=== PATIENT | male | born 1970 | race Caucasian/White ===

== ENCOUNTER 2017-06-05 19:34 | Emergency (ER) | payer OTHER ==
[2017-06-05 19:40] VITALS: BP 143/100
--- NOTE | 2017-06-05 20:03 | ED Physician Documentation ---
PD HPI MALE - Stated complaint Stated Complaint: MALE - Chief complaint Chief Complaint: UTI - History obtained from History obtained from: Patient - History of Present Illness Timing - onset: Other (His girlfriend mentioned that she might have an STD but there is no clear diagnosis. He has no symptoms but would like to be tested.) Review of Systems Constitutional: reports: Reviewed and negative Cardiac: reports: Reviewed and negative Respiratory: reports: Reviewed and negative PD PAST MEDICAL HISTORY - Past Medical History Past Medical History: No - Past Surgical History Past Surgical History: No - Present Medications Home Medications: Ambulatory Orders Medication Instructions Recorded Confirmed No Known Home Medications [No 06/05/17 06/05/17 Known Home Medications] - Allergies Allergies/Adverse Reactions: Allergies Allergy/AdvReac Type Severity Reaction Status Date / Time No Known Drug Allergies Allergy Verified 06/05/17 19:39 - Social History Does the pt smoke?: No Smoking Status: Never smoker Does the pt drink ETOH?: Yes Does the pt have substance abuse?: No - Immunizations Immunizations are current?: Yes - POLST Patient has POLST: No PD ED PE NORMAL - Vitals Vital signs reviewed: Yes - General General: Alert and oriented X 3, No acute distress - Abdomen Abdomen: Soft, Non tender - Neuro Neuro: Alert and oriented X 3, Normal speech - Psych Psych: Normal mood, Normal affect Results - Vitals Vitals: Vital Signs - 24 hr 06/05/17 19:37 Temperature 37 C Heart Rate 87 Respiratory 18 Rate Blood Pressure 143/100 H O2 Saturation 100 Oxygen O2 Source Room air Departure - Departure Disposition: 01 Home, Self Care Clinical Impression: Concern about STD in male without diagnosis Condition: Good Record reviewed to determine appropriate education?: Yes Instructions: STDs Older Adult Comments: Your blood pressure was elevated today on check into the emergency department. This does not mean that you have hypertension, it is a common phenomenon to come to the emergency department and have elevated blood pressure. I recommend that you see your primary care physician within the week to have it rechecked when you are feeling better.
== END 2017-06-05 20:11 | disposition home or self-care (01) ==
LOC: ED 19:34
DX: Z20.2 Contact with and (suspected) exposure to infections with a predominantly sexual mode of transmission (principal); R03.0 Elevated blood-pressure reading, without diagnosis of hypertension
CPT/HCPCS: 87491; 87591; 99282

== ENCOUNTER 2017-12-10 17:39 | Outpatient (CLI) | payer OTHER | END 2017-12-10 17:40 | disposition critical access hospital (66) | LOC: EMS 17:39 | PROVIDERS: ATTEND Surgery | DX: R07.9 Chest pain, unspecified (principal) | CPT/HCPCS: A0425; A0427 ==

== ENCOUNTER 2017-12-10 18:11 | Emergency (ER) | payer OTHER ==
[2017-12-10] MEDS ORDERED: LIDOCAINE VISCOUS 2% 15 ML UDC MM STA (18:22)
[2017-12-10] MEDS ORDERED: MAG HYDROX/AL HYDROX/SIMETH 30 ML UDC PO STA (18:22)
--- NOTE | 2017-12-10 18:25 | ED Physician Documentation ---
PD HPI CHEST PAIN - Stated complaint Stated Complaint: CP - Chief complaint Chief Complaint: Cardiac - History obtained from History obtained from: Patient - History of Present Illness Timing - onset: Other (46-year-old gentleman with no significant past medical history describes 10 days of mild constant chest pressure worse with taking a deep breath but no shortness of breath or cough. No recent travel, pedal edema , or calf pain. He was seen in the [place] and referred here for further evaluation and treatment. He did receive 324 mg of aspirin there.) Review of Systems Ten Systems: 10 systems reviewed and negative Constitutional: denies: Fever, Chills Cardiac: reports: Chest pain / pressure. denies: Palpitations, Pedal edema, Calf pain Respiratory: denies: Dyspnea, Cough, Hemoptysis, Wheezing PD PAST MEDICAL HISTORY - Past Medical History Past Medical History: No - Past Surgical History Past Surgical History: No - Present Medications Home Medications: Ambulatory Orders Medication Instructions Recorded Confirmed No Known Home Medications [No 06/05/17 06/05/17 Known Home Medications] - Allergies Allergies/Adverse Reactions: Allergies Allergy/AdvReac Type Severity Reaction Status Date / Time No Known Drug Allergies Allergy Verified 06/05/17 19:39 - Social History Does the pt smoke?: No Smoking Status: Never smoker Does the pt drink ETOH?: Yes Does the pt have substance abuse?: No - Immunizations Immunizations are current?: Yes - POLST Patient has POLST: No PD ED PE NORMAL - Vitals Vital signs reviewed: Yes - General General: Alert and oriented X 3, No acute distress - HEENT HEENT: PERRL, EOMI - Neck Neck: Supple, no meningeal sign, No bony TTP - Cardiac Cardiac: RRR, No murmur, Other (Mild reproducible left anterior chest wall tenderness) - Respiratory Respiratory: No respiratory distress, Clear bilaterally - Abdomen Abdomen: Non tender - Extremities Extremities: No edema, No calf tenderness / cord - Neuro Neuro: Alert and oriented X 3, Normal speech Results - Vitals Vitals: Vital Signs - 24 hr 12/10/17 12/10/17 18:14 19:19 Temperature 37.0 C 36.6 C Heart Rate 55 L 64 Respiratory 14 18 Rate Blood Pressure 129/93 H 139/104 H O2 Saturation 99 97 Oxygen O2 Source Room air - EKG (time done) 1824 Rate: Rate (enter#) (64) Rhythm: NSR [place]: Normal Intervals: Normal [place] QRS: Normal Ischemia: Non specific changes (Mild inferolateral T-wave flattening) Computer interpretation: Agree with computer - Labs Labs: Laboratory Tests 12/10/17 12/10/17 12/10/17 18:30 18:30 18:30 WBC 8.6 RBC 4.87 Hgb 16.2 Hct 47.0 MCV 96.5 H MCH 33.3 H MCHC 34.5 RDW 13.4 Plt Count 267 MPV 7.7 Neut # (Auto) 5.5 Lymph # (Auto) 2.4 [place] # (Auto) 0.7 Eos # (Auto) 0.1 Baso # (Auto) 0.0 Absolute Nucleated RBC 0.00 Nucleated RBC % 0.0 Sodium 133 L Potassium 3.5 Chloride 102 Carbon Dioxide 24 Anion Gap 7.0 BUN 15 Creatinine 1.1 Estimated GFR (MDRD) 71 L Glucose 87 Calcium 9.1 Total Bilirubin 1.1 H AST 22 ALT 25 Alkaline Phosphatase 47 Troponin I < 0.04 Total Protein 7.7 Albumin 4.4 Globulin 3.3 Albumin/Globulin Ratio 1.3 Lipase 31 - Rads (name of study) 2v chest Radiology: EMP read contemporaneously (Normal) PD MEDICAL DECISION MAKING - ED course ED course: 46-year-old gentleman with reproducible atypical chest pain which has been constant for 10 days with negative workup, single troponin should be predictive. - Sepsis Event Vital Signs: Vital Signs - 24 hr 12/10/17 12/10/17 18:14 19:19 Temperature 37.0 C 36.6 C Heart Rate 55 L 64 Respiratory 14 18 Rate Blood Pressure 129/93 H 139/104 H O2 Saturation 99 97 Oxygen O2 Source Room air Departure - Departure Disposition: Home, Self Care Clinical Impression: Chest pain Qualifiers: Chest pain type: chest pain on breathing Qualified Code(s): R07.1 - Chest pain on breathing; R07.81 - Pleurodynia Condition: Good Record reviewed to determine appropriate education?: Yes Instructions: ED Chest Pain NonCardiac Comments: Your blood pressure was elevated today on check into the emergency department. This does not mean that you have hypertension, it is a common phenomenon to come to the emergency department and have elevated blood pressure. I recommend that you see your primary care physician within the week to have it rechecked when you are feeling better. Call your doctor to arrange a follow-up appointment, make the next available appointment. In the interim, return anytime if worse or if new symptoms develop.
[2017-12-10 18:37] LABS: BASOPHILS % (AUTO) 0.2 %; EOSINOPHILS # (AUTO) 0.1 10^3/uL (0.0-0.7); EOSINOPHILS % (AUTO) 0.6 %; HGB - HEMOGLOBIN 16.2 g/dL (14.0-18.0); LYMPHOCYTES # (AUTO) 2.4 10^3/uL (1.5-3.5); LYMPHOCYTES % (AUTO) 27.7 %; MEAN CORPUSCULAR HEMOGLOBIN 33.3 pg (27.0-31.0); MEAN CORPUSCULAR HGB CONC 34.5 g/dL (32.0-36.0); MEAN CORPUSCULAR VOLUME 96.5 fL (80.0-94.0); MEAN PLATELET VOLUME 7.7 fL (7.4-11.4); MONOCYTES # (AUTO) 0.7 10^3/uL (0.0-1.0); MONOCYTES % (AUTO) 8.3 %; NEUTROPHILS # (AUTO) 5.5 10^3/uL (1.5-6.6); NEUTROPHILS % (AUTO) 63.2 %; PLT - PLATELET COUNT 267 10^3/uL (130-450); RED BLOOD COUNT 4.87 10^6/uL (4.70-6.10); RED CELL DISTRIBUTION WIDTH 13.4 % (12.0-15.0); WHITE BLOOD COUNT 8.6 x10^3/uL (4.8-10.8)
[2017-12-10 18:48] LABS: ALBUMIN 4.4 g/dL (3.2-5.5); ALBUMIN/GLOBULIN RATIO 1.3 (1.0-2.2); BILIRUBIN,TOTAL 1.1 mg/dL (0.2-1.0); CALCIUM 9.1 mg/dL (8.5-10.3); CREATININE 1.1 mg/dL (0.6-1.2); TOTAL PROTEIN 7.7 g/dL (6.7-8.2)
--- NOTE | 2017-12-10 18:57 | XRAY Report ---
Procedure Date: 12/10/2017 Accession Number: [id number] / [id number] Procedure: XR - Chest 2 View X-Ray CPT Code: 37378 FULL RESULT: EXAM: CHEST RADIOGRAPHY EXAM DATE: 12/10/2017 06:43 PM. CLINICAL HISTORY: Chest pain. COMPARISON: None. TECHNIQUE: 2 views. FINDINGS: Lungs/Pleura: No focal opacities evident. No pleural effusion. No pneumothorax. Normal volumes. Mediastinum: Heart and mediastinal contours are unremarkable. Other: None. IMPRESSION: Normal 2-view chest radiography. RADIA
[2017-12-10 19:21] VITALS: BP 139/104
== END 2017-12-10 19:36 | disposition home or self-care (01) ==
LOC: EDUNIT# → ED 18:11
DX: R07.1 Chest pain on breathing (principal); R07.81 Pleurodynia; R03.0 Elevated blood-pressure reading, without diagnosis of hypertension
CPT/HCPCS: 36415; 71046; 80053; 83690; 84484; 85025; 93005; 99283; A9270

== ENCOUNTER 2019-03-30 13:51 | Outpatient (CLI) | payer OTHER | END 2019-03-30 13:52 | disposition critical access hospital (66) | LOC: EMS 13:51 | PROVIDERS: ATTEND Surgery | DX: R07.89 Other chest pain (principal); R20.2 Paresthesia of skin; R06.00 Dyspnea, unspecified | CPT/HCPCS: A0425; A0429 ==

== ENCOUNTER 2019-03-30 14:17 | Emergency (ER) | payer OTHER ==
--- NOTE | 2019-03-30 14:35 | ED Physician Documentation ---
PD HPI CHEST PAIN - Stated complaint Stated Complaint: CHEST PRESSURE - Chief complaint Chief Complaint: Cardiac - History obtained from History obtained from: Patient - History of Present Illness Timing - onset: How many hours ago (3), Today Timing - onset during: Rest Timing - details: Gradual onset, Now resolved Pain level max: 1 Pain level now: 0 Quality: Pressure, Tightness Location: Substernal Radiation: No: Jaw, Neck, Back, Abdominal, Left upper extremity, Right upper extremity Improved by: Nothing Worsened by: No: Exertion, Inspiration, Eating, Movement, Palpation, Position Associated symptoms: Nausea, Feeling faint / dizzy. No: Shortness of air, Diaphoresis, Vomiting, General Weakness, Palpitations, Cough Similar symptoms before: Diagnosis (states has had similar feelings in the past with anxiety. increased stress lately) Recently seen: Not recently seen - Additional information Additional information: given ASA by EMS Review of Systems Constitutional: denies: Fever, Chills Ears: denies: Ear pain Nose: denies: Rhinorrhea / runny nose, Congestion Throat: denies: Sore throat Cardiac: denies: Palpitations, Pedal edema, Calf pain Respiratory: denies: Cough : denies: Dysuria Skin: denies: Rash Musculoskeletal: denies: Neck pain, Back pain Neurologic: denies: Focal weakness, Numbness, Headache PD PAST MEDICAL HISTORY - Past Medical History Past Medical History: No - Past Surgical History Past Surgical History: No - Present Medications Home Medications: Ambulatory Orders Medication Instructions Recorded Confirmed No Known Home Medications 06/05/17 06/05/17 - Allergies Allergies/Adverse Reactions: Allergies Allergy/AdvReac Type Severity Reaction Status Date / Time No Known Drug Allergies Allergy Verified 03/30/19 14:26 - Living Situation Living Situation: reports: With family Living Arrangement: reports: At home - Social History Does the pt smoke?: No Smoking Status: Never smoker Does the pt drink ETOH?: Yes Does the pt have substance abuse?: No - Immunizations Immunizations are current?: Yes - POLST Patient has POLST: No PD ED PE NORMAL - Vitals Vital signs reviewed: Yes - General General: Alert and oriented X 3, No acute distress, Well developed/nourished - HEENT HEENT: PERRL, Ears normal, Moist mucous membranes, Pharynx benign - Neck Neck: Supple, no meningeal sign - Cardiac Cardiac: RRR, No murmur, Strong equal pulses - Respiratory Respiratory: No respiratory distress, Clear bilaterally - Abdomen Abdomen: Soft, Non tender, Non distended - Derm Derm: Warm and dry - Extremities Extremities: No edema - Neuro Neuro: Alert and oriented X 3 - Psych Psych: Normal mood, Normal affect Results - Vitals Vitals: Vital Signs - 24 hr 03/30/19 03/30/19 14:23 17:11 Temperature 36.9 C 37 C Heart Rate 79 81 Respiratory 16 18 Rate Blood Pressure 180/99 H 142/88 H O2 Saturation 99 99 Oxygen O2 Source Room air - EKG (time done) 1443 Rate: Rate (enter#) (83) Rhythm: NSR [place]: Normal Intervals: Normal [place] QRS: Normal Ischemia: Non specific changes Compare to prior EKG: Unchanged from prior EKG - Labs Labs: Laboratory Tests 03/30/19 03/30/19 03/30/19 14:42 14:42 14:42 WBC 7.6 RBC 4.80 Hgb 16.2 Hct 45.8 MCV 95.4 H MCH 33.8 H MCHC 35.4 RDW 12.1 Plt Count 262 MPV 9.5 Neut # (Auto) 5.6 Lymph # (Auto) 1.4 L [place] # (Auto) 0.5 Eos # (Auto) 0.0 Baso # (Auto) 0.0 Absolute Nucleated RBC 0.00 Nucleated RBC % 0.0 Sodium 140 Potassium 3.3 L Chloride 104 Carbon Dioxide 25 Anion Gap 11.0 BUN 13 Creatinine 1.0 Estimated GFR (MDRD) 79 L Glucose 107 H Calcium 9.2 Total Bilirubin 0.5 AST 19 ALT 19 Alkaline Phosphatase 39 L Troponin I High Sens 3.6 Total Protein 7.6 Albumin 4.7 Globulin 2.9 Albumin/Globulin Ratio 1.6 Lipase 31 03/30/19 16:23 WBC RBC Hgb Hct MCV MCH MCHC RDW Plt Count MPV Neut # (Auto) Lymph # (Auto) [place] # (Auto) Eos # (Auto) Baso # (Auto) Absolute Nucleated RBC Nucleated RBC % Sodium Potassium Chloride Carbon Dioxide Anion Gap BUN Creatinine Estimated GFR (MDRD) Glucose Calcium Total Bilirubin AST ALT Alkaline Phosphatase Troponin I High Sens 3.1 Total Protein Albumin Globulin Albumin/Globulin Ratio Lipase - Rads (name of study) cxr Radiology: Prelim report reviewed, EMP read contemporaneously, See rad report (no acute disease) PD MEDICAL DECISION MAKING - ED course Complexity details: reviewed results, re-evaluated patient, considered differential (No ST elevation AL, no aortic dissection, no PE, no tension pneumothorax, no aortic aneurysm), d/w patient ED course: 48-year-old male presents to the emergency department with atypical chest pain. No acute ischemic changes on EKG compared to prior. Given aspirin prior to arrival. Negative high-sensitivity troponin x2. No evidence of acute coronary syndrome. No evidence of pulmonary embolus. Seems more consistent with anxiety. Patient will follow-up with his doctor for a cardiac stress test. His last stress test he states was in 2004 and was normal. Patient counseled regarding signs and symptoms for which I believe and urgent re-evaluation would be necessary. Patient with good understanding of and agreement to plan and is comfortable going home at this time This document was made in part using voice recognition software. While efforts are made to proofread this document, sound alike and grammatical errors may occur. Departure - Departure Disposition: 01 Home, Self Care Clinical Impression: Chest pain Qualifiers: Chest pain type: unspecified Qualified Code(s): R07.9 - Chest pain, unspecified Condition: Good Instructions: ED Chest Pain Atypical Unkn Cause Follow-Up: your,doctor in 1 week [Other] Comments: Your testing is normal today. You should have a cardiac stress test with your doctor within the next week. You should start on a baby aspirin daily. Return if you worsen. Discharge Date/Time: 03/30/19 17:20
[2019-03-30 14:47] LABS: BASOPHILS % (AUTO) 0.4 %; EOSINOPHILS % (AUTO) 0.1 %; HGB - HEMOGLOBIN 16.2 g/dL (14.0-18.0); LYMPHOCYTES # (AUTO) 1.4 10^3/uL (1.5-3.5); MEAN CORPUSCULAR HEMOGLOBIN 33.8 pg (27.0-31.0); MEAN CORPUSCULAR HGB CONC 35.4 g/dL (32.0-36.0); MEAN CORPUSCULAR VOLUME 95.4 fL (80.0-94.0); MEAN PLATELET VOLUME 9.5 fL (7.4-11.4); MONOCYTES # (AUTO) 0.5 10^3/uL (0.0-1.0); MONOCYTES % (AUTO) 6.3 %; NEUTROPHILS # (AUTO) 5.6 10^3/uL (1.5-6.6); NEUTROPHILS % (AUTO) 73.8 %; PLT - PLATELET COUNT 262 10^3/uL (130-450); RED CELL DISTRIBUTION WIDTH 12.1 % (12.0-15.0); WHITE BLOOD COUNT 7.6 x10^3/uL (4.8-10.8)
[2019-03-30 15:00] LABS: ALBUMIN 4.7 g/dL (3.2-5.5); ALBUMIN/GLOBULIN RATIO 1.6 (1.0-2.2); BILIRUBIN,TOTAL 0.5 mg/dL (0.2-1.0); CALCIUM 9.2 mg/dL (8.5-10.3); TOTAL PROTEIN 7.6 g/dL (6.7-8.2)
--- NOTE | 2019-03-30 15:50 | XRAY Report ---
Reason: Chest Pain Procedure Date: 03/30/2019 Accession Number: [id number] / [id number] Procedure: XR - Chest 1 View X-Ray CPT Code: 99414 Final Report FULL RESULT: EXAM: CHEST RADIOGRAPHY EXAM DATE: 03/30/2019 02:40 PM. CLINICAL HISTORY: Chest Pain. COMPARISON: CHEST 2 VIEW 12/10/2017 6:28 PM. TECHNIQUE: 1 view. FINDINGS: Lungs/Pleura: No focal opacities evident. No pleural effusion. No pneumothorax. Mediastinum: Within exam limitations, the cardiomediastinal contour is normal. Other: None. IMPRESSION: Negative chest RADIA
[2019-03-30 17:13] VITALS: BP 142/88
== END 2019-03-30 17:20 | disposition home or self-care (01) ==
LOC: EDUNIT# → ED 14:17
DX: R07.89 Other chest pain (principal)
CPT/HCPCS: 36415; 71045; 80053; 83690; 84484; 85025; 93005; 99284

== ENCOUNTER 2020-04-23 13:22 | Outpatient (CLI) | payer OTHER | END 2020-04-23 13:23 | disposition home or self-care (01) | LOC: COV 13:22 | PROVIDERS: ATTEND Family Medicine | DX: Z20.828 Contact with and (suspected) exposure to other viral communicable diseases (principal) ==

== ENCOUNTER 2020-07-30 07:00 | Outpatient (CLI) | payer OTHER | END 2020-07-30 23:59 | disposition home or self-care (01) | LOC: COV 07:00 | PROVIDERS: ATTEND Family Medicine | DX: Z20.822 Contact with and (suspected) exposure to COVID-19 (principal) ==